=== PATIENT | male | born 1935 | race Caucasian/White ===

== ENCOUNTER 2017-12-23 12:34 | Emergency (ER) | payer OTHER ==
[~2017-12-23] VITALS: Ht 182.9 cm; Wt 75.8 kg
[~2017-12-23 12:34] MED LIST: ASPCH81X PO; GARLTAB3 PO; LEVO88TA PO; LISI-729 PO; MULTTAB58 PO; SIMV20TA5 PO; VITAMIN C PO
[2017-12-23 12:38] VITALS: TEMP 36.8; Ht 182.9 cm; Wt 75.8 kg
--- NOTE | 2017-12-23 13:00 | EMERGENCY ROOM VISIT NOTE ---
History Report prepared by Bowen: oJe Carmichael Under the Supervision of: Dr. Renzo Cardozo M.D. First contact with patient: 12:42 Chief Complaint: ABDOMINAL PAIN Stated Complaint: PAIN AND SWELLING IN STOMACH REGION-REF BY DR Langford Triage Summary: Cough, fever. FEver at home rectally was 101.6. Not drinking and not peeing. Vomiting. Was seen last night. Flu swab and strep were negative last night here. History of Present Illness The patient is a 82 year old male who presents to the Emergency Room with complaints of dull mid abdominal pain that began two days ago. He rates his pain a 6/10 in severity. At this time, the patient noticed an area of swelling or a "lump" just above his naval. He states that his pain is exacerbated whenever he touches or presses on it. He has a past medical history of a bilateral inguinal hernia repair procedure. He denies any fevers, chills, diaphoresis, chest pain, shortness of breath, nausea, vomiting, weakness, numbness, or abnormal urinary symptoms.. Source of History: patient Onset: two days ago Position: abdomen (mid) Symptom Intensity: 6/10 Quality: dull Timing: constant Modifying Factors (Worsening): other (Touching or pressing the area) Associated Symptoms: No fevers, No chills, No diaphoresis, No chest pain, No SOB, No nausea, No vomiting, No urinary symptoms, No weakness, No numbness Review of Systems See HPI for pertinent positives & negatives. A total of 10 systems reviewed and were otherwise negative. Past Medical & Surgical Surgical Problems: (1) H/O bilateral inguinal hernia repair Bilateral inguinal hernia surgery Family History Omitted secondary to the patient's age. Social History Smoking Status: Former Smoker Smokeless Tobacco Use: No Drug Use: none Occupation Status: retired Current/Historical Medications Scheduled Aspirin (Aspirin Chewable), 81 MG PO DAILY Levothyroxine Sodium (Synthroid), 88 MCG PO DAILY Lisinopril (Prinivil), 5 MG PO DAILY Multiple Vitamin (Multivitamin), 1 TAB PO DAILY Simvastatin (Zocor), 20 MG PO QPM [Garlic], 580 MG PO DAILY [Vitamin C], 500 MG PO DAILY Allergies Coded Allergies: No Known Drug Allergy (Verified Allergy, Unknown, NKDA, 11/18/12) Physical Exam Vital Signs Date Time Temp Pulse Resp B/P (MAP) Pulse Ox O2 Delivery O2 Flow Rate FiO2 12/23/17 13:12 97 16 149/86 99 12/23/17 12:38 36.8 78 18 149/78 98 Room Air Physical Exam GENERAL: Patient is in no acute distress. HEENT: No acute trauma, normocephalic atraumatic, mucous membranes moist, no nasal congestion, no scleral icterus. NECK: No stridor, no adenopathy, no meningismus, trachea is midline. LUNGS: Clear to auscultation bilaterally, no wheeze, no rhonchi, breath sounds equal. HEART: Without murmurs gallops or rubs, regular rate and rhythm. ABDOMEN: There is a 1 cm, firm lesion just superior to the umbilicus over an area of prior surgical incision. No erythema. The area is mildly tender and the lesion was easily reduced. Bowel sounds positive. No peritonitis. EXTREMITIES: No cyanosis or edema, full range of motion of all the joints without pain or difficulty, no signs for acute trauma. NEUROLOGIC: Oriented x 3, no acute motor or sensory deficits, no focal weakness. SKIN: No rash, no jaundice, no diaphoresis. Medical Decision & Procedures Procedure Hernia reduction: With the patient supine, gentle pressure was applied to the suspected hernia just above the umbilicus, it was easily reduced without complication. The patient felt well. ED Course 1242: The patient was evaluated in room C2B. A complete history and physical exam was performed. 1305: Reevaluated the patient. Discussed results and discharge instructions: He verbalized understanding and agreement. The patient is ready for discharge. Medical Decision Differential diagnosis includes but is not limited to hernia, bowel obstruction , musculoskeletal pain, diverticulitis, pancreatitis, and ascites. Patient presents with mid pinpoint abdominal pain just above his umbilicus. On exam, he had a small incisional hernia. With some gentle pressure, this was easily reduced. The patient has not had vomiting or fever. I do think he can be discharged. He needs to follow with surgery as an outpatient. He can return for any worsening symptoms. Medication Reconcilliation Current Medication List: was personally reviewed by me Blood Pressure Screening Patient's blood pressure: Elevated blood pressure Blood pressure disposition: Elevated BP felt to be situational Impression Primary Impression: Incisional hernia Scribe Attestation The scribe's documentation has been prepared under my direction and personally reviewed by me in its entirety. I confirm that the note above accurately reflects all work, treatment, procedures, and medical decision making performed by me. Departure Information Dispostion Home / Self-Care Referrals Nany Flores M.D. (PCP) Forms HOME CARE DOCUMENTATION FORM, IMPORTANT VISIT INFORMATION Patient Instructions My [facility] Additional Instructions contact general surgery about the hernia return to the ER for worsening pain or symptoms return for vomiting or fever
[2017-12-23 13:12] VITALS: BP 149/86; PULSE 97; O2SAT 99
== END 2017-12-23 13:12 | disposition home or self-care (01) ==
LOC: C.EDB 12:36 → C.EDC 13:12
DX: K43.2 Incisional hernia without obstruction or gangrene (principal); Z87.891 Personal history of nicotine dependence; Z79.82 Long term (current) use of aspirin; Z79.899 Other long term (current) drug therapy

== ENCOUNTER 2018-01-13 07:22 | Day surgery (SDC) | payer OTHER ==
[2018-01-07 08:56] VITALS: BMI 22.0
--- NOTE | 2018-01-07 09:33 | PAT Medication Instructions ---
Service Date Jan 07, 2018. Current Home Medication List Acetaminophen (Tylenol), 1,000 MG PO PRN Alendronate/Cholecalciferol (Fosamax+D 70MG/2800 Iu), 1 TABLET PO WK Aspirin (Aspirin Chewable), 81 MG PO QPM Cholecalciferol (Vitamin D3), 1 TAB PO QAM Fluticasone Propionate (Nasal) (Flonase Allergy Relief), 2 SPRAYS INTNAS PRN Garlic (Garlic), 1,000 MG PO QAM Levothyroxine Sodium (Levothyroxine Sodium), 1 TAB PO QAM Lisinopril (Prinivil), 5 MG PO QAM Multiple Vitamin (Multivitamin), 0.5 TAB PO BID Polyethylene Glycol 3350 (Miralax), 17 GM PO PRN Saline (Saline Nasal [place] Infant), 2 SPRY RAMAN PRN Sennosides-Docusate Sodium (Stool Softener), 1 TAB PO PRN Simvastatin (Zocor), 20 MG PO QPM Tramadol (Ultram), 50 MG PO Q8H PRN for Pain Medication Instructions For Your Scheduled Surgery -Continue as directed: Alendronate/Cholecalciferol (Fosamax+D 70MG/2800 Iu), 1 TABLET PO WK - Hold the following medications starting tomorrow: Garlic (Garlic), 1,000 MG PO QAM - Hold the following medications the morning of surgery: Cholecalciferol (Vitamin D3), 1 TAB PO QAM Lisinopril (Prinivil), 5 MG PO QAM Multiple Vitamin (Multivitamin), 0.5 TAB PO BID Polyethylene Glycol 3350 (Miralax), 17 GM PO PRN - Take the following medications the morning of surgery with a sip of water: Acetaminophen (Tylenol), 1,000 MG PO PRN (if needed, can be taken up to four hours before surgery) Fluticasone Propionate (Nasal) (Flonase Allergy Relief), 2 SPRAYS INTNAS PRN ( if needed) Levothyroxine Sodium (Levothyroxine Sodium), 1 TAB PO QAM Saline (Saline Nasal [place] ), 2 SPRY RAMAN PRN (if needed) Tramadol (Ultram), 50 MG PO Q8H PRN for Pain (if needed), can be taken up to four hours before surgery) - Take the following medications as scheduled the night before surgery: Acetaminophen (Tylenol), 1,000 MG PO PRN (if needed) Aspirin (Aspirin Chewable), 81 MG PO QPM (OK per surgeon) Multiple Vitamin (Multivitamin), 0.5 TAB PO BID Polyethylene Glycol 3350 (Miralax), 17 GM PO PRN (if needed) Saline (Saline Nasal [place] ), 2 SPRY RAMAN PRN (if needed) Sennosides-Docusate Sodium (Stool Softener), 1 TAB PO PRN (if needed) Simvastatin (Zocor), 20 MG PO QPM Tramadol (Ultram), 50 MG PO Q8H PRN for Pain (if needed) If you have any questions please call us at [phone] or [phone] or [phone]
[~2018-01-13] VITALS: Ht 182.9 cm; Wt 75.2 kg
[~2018-01-13 07:22] MED LIST changes: +ACET-1256 PO; +ACETAMINOPHEN 1000 MG/100 ML IV IV ONE; +ATROPINE SULFATE 0.1 MG/ML 5ML SYR IV PRN; +CEFAZOLIN 2000MG IV PUSH 15 ML IV SCH; +CHOL1000 PO; +EpHEDrine SULFATE INJ 50 MG/ML AMP IV PRN; +FENTANYL CITRATE INJ 50 MCG/1 ML 2 ML VIAL ONE; +FLUT0.15 INTNAS; +FSMD/70 PO; +GARL10007 PO; -GARLTAB3 PO; +HYDROmorphone INJ 2 MG/ML SYR/VIAL IV PRN; +LACTATED RINGER'S 1000ML 1,000 ML IV SCH; +LEVO100T7 PO; -LEVO88TA PO; +LIDOCAINE HCL 2% 2 ML VIAL (20MG/ML) ONE; +ONDANSETRON INJ 2 MG/ML 2 ML VIAL IV PRN; +ONDANSETRON INJ 2 MG/ML 2 ML VIAL ONE; +PHENYLEPHRINE 100MCG/ML 5ML SYR IV PRN; +POLY335019 PO; +PROPOFOL IV EMULSION 10 MG/ML 20 ML VIAL IV ONE; +SALI1SPR15 NAE; +SENNTAB23 PO; +TRAM-10 PO; -VITAMIN C PO
[2018-01-13] MEDS ORDERED: LIDOCAINE HCL 1% 20 ML VIAL ONE (07:37)
[2018-01-13] MEDS ORDERED: BACITRACIN OINT 15 GM TUBE ONE (07:38)
[2018-01-13] MEDS ORDERED: BUPIVACAINE 0.5 % 5 MG/1 ML MPF 30ML VIAL ONE (07:38)
[2018-01-13 07:47] VITALS: BP 142/73; PULSE 65; TEMP 36.5; O2SAT 99; Ht 182.9 cm; Wt 75.2 kg
--- NOTE | 2018-01-13 08:58 | History & Physical Bridge Note ---
H&P Re-Evaluation Bridge Note: I have examined the patient, reviewed the History & Physical and in the interval since the performance of the History & Physical I have noted the following changes of clinical significance: No changes noted
[2018-01-13] MEDS ORDERED: FENTANYL CITRATE INJ 50 MCG/1 ML 2 ML VIAL ONE (09:21)
[2018-01-13] MEDS ORDERED: PHENYLEPHRINE 100MCG/ML 5ML SYR ONE (09:35)
--- NOTE | 2018-01-13 09:55 | [facility] Post Operative Brief Note ---
Immediate Operative Summary Operative Date Jan 13, 2018. Pre-Operative Diagnosis Incisional Hernia Post-Operative Diagnosis Incisional Hernia Procedure(s) Performed Open Repair Incisional Hernia Surgeon Dr. Zehcariah Beltran Supervisor Roving Surgeon(s) None Estimated Blood Loss 5mL Findings Consistent with Post-Op Diagnosis incisional hernia, size 2x2cm Fluids (cc crystalloids) 1200ml Specimens no specimens per surgeon Dr. Zechariah Beltran Drains None Anesthesia Type MAC Complication(s) none Disposition Accompanied Pt To Recover: yes Disposition: Recovery Room / PACU
[2018-01-13] MEDS ORDERED: SODIUM CHLORIDE 0.9% 1000ML 1,000 ML IV SCH (09:58)
[2018-01-13] MEDS ORDERED: MoRPHine SULFATE 4 MG/ML 1 ML CARP\\VIAL IV PRN (10:00)
[2018-01-13] MEDS ORDERED: ONDANSETRON INJ 2 MG/ML 2 ML VIAL IV PRN (10:00)
[2018-01-13] MEDS ORDERED: OXYCODONE/ACETAMINOPHEN 5-325 TAB PO PRN (10:00)
[2018-01-13] MEDS ORDERED: OXYC-57 PO (10:01)
--- NOTE | 2018-01-13 10:04 | Discharge Instructions ---
Discharge Instructions Date of Service Jan 13, 2018. Visit Reason for Visit: Incisional Hernia Discharge Discharge Diagnosis / Problem: S/P repair incisional hernia Discharge Goals Goal(s): Decrease discomfort, Improve function Activity Recommendations Activity Limitations: per Instructions/Follow-up section Lifting Limitations: no more than 25 pounds Exercise/Sports Limitations: rest today May Resume Sexual Activity: when tolerated Shower/Bathe: may shower/bathe in 3 days Driving or Machine Use: resume 3 days after discharge Anesthesia . Post Anesthesia Instructions: If you have had General Anesthesia or IV Sedation: * Do not drive today. * Resume driving when surgeon permits. * Do not make important decisions or sign legal documents today. * Call surgeon for: 1. Temperature elevations greater than 101 degrees F. 2. Uncontrollable pain. 3. Excessive bleeding. 4. Persistent nausea and vomiting. 5. Medication intolerance (nausea, vomiting or rash). * For nausea and vomiting use only clear liquids such as: tea, soda, bouillon until nausea subsides, then gradually increase diet as tolerated. * If you have any concerns or questions, call your surgeon's office. If physician is unavailable and it is an emergency, call 911 or go to the nearest emergency room. . Instructions / Follow-Up Instructions / Follow-Up keep the dressing on for 4 days, he can take a shower on 01/17/2018, no driving while taking pain medicine, follow up Dr. Beltran in 2 weeks, Diet Recommendations Recommended Home Diet: resume previous diet Procedures Procedures Performed: Open Repair Incisional Hernia Pending Studies Studies pending at discharge: no Medical Emergencies . Who to Call and When: Medical Emergencies: If at any time you feel your situation is an emergency, please call 911 immediately. . Non-Emergent Contact Non-Emergency issues call your: Surgeon Call Non-Emergent contact if: you have a fever, temperature is above 100.5, your pain is not controlled, your pain is worsening, wound has increased drainage, wound has increased redness . . "Provider Documentation" section prepared by Zechariah Beltran. . [place] Drug Monitoring Program Search Results: no issues identified
[2018-01-13 10:25] VITALS: BP 132/72; PULSE 82; TEMP 36.6; O2SAT 99
[2018-01-13 10:55] VITALS: BP 123/77; PULSE 74; O2SAT 97
[2018-01-13 11:25] VITALS: BP 123/74; PULSE 76; TEMP 36.6; O2SAT 97
--- NOTE | 2018-01-13 11:28 | Anesthesiology Progress Note ---
Anesthesia Post Op Note Date & Time Jan 13, 2018 at 11:28 Vital Signs Pain Intensity: 1 Vital Signs Past 12 Hours Date Time Temp Pulse Resp B/P (MAP) Pulse Ox O2 Delivery O2 Flow Rate FiO2 01/13/18 11:25 36.6 76 18 123/74 97 Room Air 01/13/18 10:55 74 18 123/77 97 Room Air 01/13/18 10:25 36.6 82 18 132/72 99 Room Air 01/13/18 10:19 36.6 01/13/18 10:15 85 27 133/75 97 01/13/18 10:15 83 27 01/13/18 10:10 73 22 01/13/18 10:10 74 22 126/76 99 01/13/18 10:09 73 15 01/13/18 10:09 77 15 100 01/13/18 10:05 124/72 01/13/18 10:04 75 23 100 01/13/18 10:04 75 23 01/13/18 10:00 118/73 01/13/18 09:59 36.9 79 12 119/72 96 Oxymask 10 01/13/18 09:59 79 119/72 96 01/13/18 09:59 79 01/13/18 07:47 36.5 65 18 142/73 (96) 99 Room Air Notes Mental Status: alert / awake / arousable, participated in evaluation Pt Amnestic to Procedure: Yes Nausea / Vomiting: adequately controlled Pain: adequately controlled Airway Patency, RR, SpO2: stable & adequate BP & HR: stable & adequate Hydration State: stable & adequate Anesthetic Complications: no major complications apparent
--- NOTE | 2018-01-13 12:20 | OPERATIVE REPORT ---
DATE OF OPERATION: 01/13/2018 PREOPERATIVE DIAGNOSIS: Incisional hernia. POSTOPERATIVE DIAGNOSIS: Same. PROCEDURE: Open repair of incisional hernia primary closure. SURGEON: Dr. Zechariah Beltran. ANESTHESIA: Conscious sedation plus local. ESTIMATED BLOOD LOSS: About 5 mL. IV FLUIDS: 1200 mL. FINDINGS: Incisional hernia, size about 2 x 2 cm. COMPLICATIONS: None. INDICATIONS FOR THE OF THE PROCEDURE: This is an 82-year-old gentleman who presented with symptomatic incisional hernia just above the umbilicus. The patient will be required to do open repair incisional hernia, possible mesh. I did talk to the patient about the benefit and risk, alternate to procedure. I indicated the risks may include but not limited such as bleeding, infection, hernia recurrence, myocardial infarction, stroke, even . The patient understands. He signed informed consent and I answered all questions. DETAILS OF PROCEDURE: We brought the patient to the OR, put the patient in the supine position. The patient received SCDs on bilateral legs to prevent DVT. Also, patient received 2 grams Ancef IV for prophylactic antibiotic. The patient received conscious sedation by the anesthesiology. The patient's abdomen was prepped board draped in routine sterile fashion. After time out, I injected the local anesthesia by using 1% lidocaine mixed with 0.5% Marcaine just above umbilicus. I made a transverse incision just above umbilicus about a 3 cm incision. Opened subcutaneous layer and found the patient had a hernia. Hernia size about 2 x 2 cm. We opened the hernia sac and mobilized the intraabdominal cavity. We decided to use #1 as above. Primary closure of the hernia. I put a #1 Ethibond C grade to close the incisional hernia x4. Rechecked, the hernia closed nicely. No tension. Then, we closed the subcutaneous layer by using 2-0 Vicryl continuous running, closed skin by using 4-0 Vicryl continuous running and then we put the dressing on. The patient tolerated the procedure well. All the instrument, needle and sponge count were correct x2 at the end the case. The patient transferred to recovery room in stable condition. After the procedure, I did talk to the patient about the OR finding and procedure we did, they understand. Also, gave patient the postop care instructions. I attest to the content of the Intraoperative Record and any orders documented therein. Any exceptions are noted below. MTDD
[2018-01-14] MEDS ORDERED: CEFAZOLIN SOD 2000MG/15 ML IV PUSH IV ONE (06:00)
== END 2018-01-13 11:43 | disposition home or self-care (01) ==
LOC: C.ACU 07:22
PROVIDERS: ATTEND Surgery
DX: K43.2 Incisional hernia without obstruction or gangrene (principal); I10 Essential (primary) hypertension; E78.5 Hyperlipidemia, unspecified; L82.1 Other seborrheic keratosis; L57.0 Actinic keratosis; N40.0 Benign prostatic hyperplasia without lower urinary tract symptoms; Z79.82 Long term (current) use of aspirin; Z82.49 Family history of ischemic heart disease and other diseases of the circulatory system; Z83.3 Family history of diabetes mellitus; Z83.6 Family history of other diseases of the respiratory system